=== PATIENT | male | born 1985 | race African-American/Black ===

== ENCOUNTER 2024-11-04 00:46 | Emergency (ER) | payer SELFPAY ==
[~2024-11-04] VITALS: Ht 170.2 cm; Wt 74.0 kg
[2024-11-04 00:55] VITALS: TEMP 36.4; O2SAT 98
[2024-11-04] MEDS: IOHEXOL-300 100 ML BOTTLE ONE (01:25)
[2024-11-04 01:38] LABS: BASOPHILS % 0.5 % (0.0-2.0); EOSINOPHILS % 0.3 % (0.0-5.0); HEMATOCRIT. 33.2 % (42.0-52.0); HEMOGLOBIN. 11.4 g/dL (14.0-18.0); MEAN CORPUSCULAR HEMOGLOBIN 32.4 pg (28.0-32.0); MEAN CORPUSCULAR HGB CONC 34.3 g/dL (31.0-37.0); MEAN CORPUSCULAR VOLUME 94.5 fL (80.0-94.0); MEAN PLATELET VOLUME 9.3 fl (7.4-10.4); NEUTROPHILS % 65.2 % (40.0-76.0); PLATELET 234 x1000/uL (130-400); RED BLOOD CELL COUNT 3.52 mill/uL (4.7-6.1); WHITE BLOOD COUNT 7.4 x1000/uL (4.5-11.0)
[2024-11-04] MEDS: KETOROLAC 30MG/ML VIAL IV NR (01:51)
[2024-11-04 01:53] LABS: CHLORIDE 109 mEq/L (98-107); POTASSIUM 3.4 mEq/L (3.5-5.1); SODIUM 143 mEq/L (136-145)
[2024-11-04 01:54] LABS: CALCIUM 8.6 mg/dL (8.7-10.4); CARBON DIOXIDE 27 mEq/L (21-32)
[2024-11-04 01:59] LABS: GLUCOSE 157 mg/dL (70-105); UREA NITROGEN BLOOD 14 mg/dL (9-23)
[2024-11-04 02:01] LABS: ALANINE AMINOTRANSFERASE 18 IU/L (10-49); ALBUMIN 3.7 g/dL (3.2-4.8); ASPARTATE AMINOTRANSFERASE 21 IU/L (<34); BILIRUBIN TOTAL 0.5 mg/dL (0.1-1.0); PROTEIN TOTAL 5.5 g/dL (6.0-8.3)
[2024-11-04 02:59] LABS: PARTIAL THROMBOPLASTIN TIME 23.2 sec (23.4-31.0)
[2024-11-04] MEDS: IOHEXOL-350 100 ML BOTTLE ONE (03:42)
[2024-11-04] MEDS: ONDANSETRON HCL 4MG/2ML INJ IV ONE (05:11)
[2024-11-04] MEDS: CEFTRIAXONE 500 MG in DEXTROSE 5% WATER 50 ML IV SCH (05:48)
[2024-11-04] MEDS ORDERED: IBUP-2029 MT (07:14)
[2024-11-04] MEDS ORDERED: AMOX1TAB16 MT (07:14)
[2024-11-04 07:48] VITALS: BP 106/65; PULSE 67; RESP 15; O2SAT 100
== END 2024-11-04 07:48 | disposition home or self-care (01) ==
LOC: ER 00:57
DX: S21.111A Laceration without foreign body of right front wall of thorax without penetration into thoracic cavity, initial encounter (principal); X58.XXXA Exposure to other specified factors, initial encounter; Y93.89 Activity, other specified; Y92.89 Other specified places as the place of occurrence of the external cause; Y99.8 Other external cause status
CPT/HCPCS: 99291; 71275; 96365; 71045; 96375; 80053; 85025; 85610; 85730; 86850; 86900; 86901; 36415; 73206; 71260; J1885; Q9967 ×2; J0696; J2405; J7060; A4565